=== PATIENT | female | born 1975 | race Two or more races ===

== ENCOUNTER 2019-08-23 07:43 | Outpatient (CLI) | payer OTHER | END 2019-08-23 07:47 | disposition home or self-care (01) | LOC: SONOGRAMA 07:43 | DX: R22.2 Localized swelling, mass and lump, trunk (principal) ==

== ENCOUNTER 2020-02-14 07:41 | Outpatient (CLI) | payer OTHER | END 2020-02-14 07:49 | disposition home or self-care (01) | LOC: SONOGRAMA 07:41 | PROVIDERS: ATTEND Pathology Anatomic Pathology & Clinical Pathology | DX: R22.1 Localized swelling, mass and lump, neck (principal) ==